=== PATIENT | female | born 1975 | race Caucasian/White ===

== ENCOUNTER 2022-06-25 11:38 | Emergency (ER) | payer SELFPAY | END 2022-06-25 12:03 | disposition home or self-care (01) | LOC: MW.ED 11:38 | DX: Z02.89 Encounter for other administrative examinations (principal); J45.909 Unspecified asthma, uncomplicated; G43.909 Migraine, unspecified, not intractable, without status migrainosus; Z88.8 Allergy status to other drugs, medicaments and biological substances | CPT/HCPCS: 99283 ==

== ENCOUNTER 2022-06-30 01:50 | Emergency (ER) | payer MEDICAID ==
[2022-06-30] MEDS ORDERED: Sodium Chloride 0.9% 10 ML Syringe FLUSH PRN (01:52)
[2022-06-30] MEDS ORDERED: Sodium Chloride 0.9% 2.5 ML Syringe FLUSH PRN (01:52)
[2022-06-30] MEDS ORDERED: Sodium Chloride 0.9% 1,000 ML IV ONE (01:53)
[2022-06-30] MEDS ORDERED: Ondansetron 4 MG Tab.DIS PO ONE (02:10)
[2022-06-30] MEDS ORDERED: levETIRAcetam Soln 500 MG/5 ML Cup PO ONE (02:46)
[2022-06-30] MEDS ORDERED: Ondansetron 4 MG/2 ML SDV IM ONE (02:47)
[2022-06-30] MEDS ORDERED: Ketorolac 30 MG/ML SDV IM STA (02:47)
== END 2022-06-30 03:35 ==
LOC: MW.ED 01:50
DX: G40.909 Epilepsy, unspecified, not intractable, without status epilepticus (principal); Z88.8 Allergy status to other drugs, medicaments and biological substances; Z20.822 Contact with and (suspected) exposure to COVID-19
CPT/HCPCS: 70450; 87635; 93005; 96372; 99284; A9270; J1885; J2405; 93010; 99283; U0002